=== PATIENT | female | born 1955 | race Caucasian/White ===

== ENCOUNTER → 2017-04-01 | Outpatient (CLI) | payer BC ==
[~2017-04-01] MED LIST: ASPI-630 PO; LEVO25TA4 PO; VARE1TAB20 PO
--- NOTE | 2017-04-01 09:57 | RAD ---
DATE: 04/01/2017 EXAM: MAMMO CECILIA SCREENING BILATERAL HISTORY: Routine screening COMPARISON: 03/04/2016 This study was interpreted with the benefit of Computerized Aided Detection (CAD). FINDINGS: Breast Density: SCATTERED The breast parenchyma shows scattered fibroglandular densities. Breast parenchyma level B. There are no dominant suspicious masses, suspicious microcalcifications or evidence of architectural distortion. IMPRESSION: Negative mammogram. BI-RADS CATEGORY: 1 NEGATIVE RECOMMENDED FOLLOW-UP: 12M 12 MONTH FOLLOW-UP PQRS compliance statement: Patient information was entered into a reminder system with a target due date 04/01/2018 for the next mammogram. Mammography is a sensitive method for finding small breast cancers, but it does not detect them all and is not a substitute for careful clinical examination. A negative mammogram does not negate a clinically suspicious finding and should not result in delay in biopsying a clinically suspicious abnormality. "Our facility is accredited by the [employer] Mammography [employer]."
== END | disposition home or self-care (01) ==
LOC: MAMMO 08:03
PROVIDERS: ATTEND Nurse Practitioner Family
DX: Z85.3 Personal history of malignant neoplasm of breast (principal); Z12.31 Encounter for screening mammogram for malignant neoplasm of breast
CPT/HCPCS: 77063; G0202; 77067

== ENCOUNTER → 2018-03-21 | Outpatient (CLI) | payer BC ==
--- NOTE | 2018-03-21 13:25 | RAD ---
DATE: 03/21/2018 EXAM: MAMMO CECILIA SCREENING BILATERAL HISTORY: Routine screening COMPARISON: 04/01/2017 This study was interpreted with the benefit of Computerized Aided Detection (CAD). Breast Density: SCATTERED The breast parenchyma shows scattered fibroglandular densities. Breast parenchyma level B. FINDINGS: 2-D and 3-D tomosynthesis imaging was performed in CC and MLO projections. No new or enlarging breast densities are seen. No suspicious microcalcifications are evident. IMPRESSION: Stable mammograms without evidence of malignancy. BI-RADS CATEGORY: 1 NEGATIVE RECOMMENDED FOLLOW-UP: 12M 12 MONTH FOLLOW-UP PQRS compliance statement: Patient information was entered into a reminder system with a target due date for the next mammogram. Mammography is a sensitive method for finding small breast cancers, but it does not detect them all and is not a substitute for careful clinical examination. A negative mammogram does not negate a clinically suspicious finding and should not result in delay in biopsying a clinically suspicious abnormality. "Our facility is accredited by the [employer] Mammography [employer]."
--- NOTE | 2018-03-21 13:30 | RAD ---
EXAM: Dual energy x-ray absorptiometry (DEXA). HISTORY: Postmenopausal female presents for osteoporosis screening. COMPARISON: 12/26/2012. TECHNIQUE: Dual energy x-ray absorptiometry of the lumbar spine and right hip was performed. Calculation of bone mineral density based on standard deviations above or below the expected young adult normal value (T-score) was completed. FINDINGS: The average bone mineral density in the 1st through 4th lumbar vertebrae is 1.060 g/cmxcm, corresponding with a T-score of -1.0. There has been a 1.9 percent decrease in density of the lumbar spine compared to the prior study. The average total bone mineral density in the right hip is 1.048 g/cmxcm, corresponding with a T-score of 0.8. There has been a 0.9 percent decrease in density of the right hip compared to the prior study. IMPRESSION: 1. Borderline osteopenia measured at the lumbar spine. 2. Normal bone mineral density measured at the right hip. Note: Definitions established by the World Health Organization: 1. Normal: T-score is -1.0 or above. 2. Osteopenia: T-score is between -1.0 and -2.5 . 3. Osteoporosis: T-score is -2.5 or below. Electronically signed by: Haven Fuentes MD (03/21/2018 1:27 PM) [id number]
== END | disposition home or self-care (01) ==
LOC: DXRAD 11:07
PROVIDERS: ATTEND Physician Assistant Medical
DX: Z12.31 Encounter for screening mammogram for malignant neoplasm of breast (principal); Z13.820 Encounter for screening for osteoporosis; Z78.0 Asymptomatic menopausal state
CPT/HCPCS: 77063; 77067; 77080

== ENCOUNTER → 2019-03-26 | Outpatient (CLI) | payer BC ==
--- NOTE | 2019-03-27 15:02 | RAD ---
DATE: March 26, 2019 EXAM: MAMMO CECILIA SCREENING BILATERAL HISTORY: Screening study. COMPARISON: 2016 and 2018 This study was interpreted with the benefit of Computerized Aided Detection (CAD). 2-D digital mammographic views of both breasts were performed in the CC and MLO projections. 3-D digital tomosynthesis images of both breasts were performed in the CC and MLO projections and reviewed on a computer workstation. FINDINGS: Breast Density: FATTY The breast parenchyma is primarily fatty replaced. Breast parenchyma level density A.. There are no dominant suspicious masses, suspicious microcalcifications or evidence of architectural distortion. IMPRESSION: No mammographic indicators for malignancy. BI-RADS CATEGORY: 1 NEGATIVE RECOMMENDED FOLLOW-UP: 12M 12 MONTH FOLLOW-UP PQRS compliance statement: Patient information was entered into a reminder system with a target due date March 27, 2020 for the next mammogram. Mammography is a sensitive method for finding small breast cancers, but it does not detect them all and is not a substitute for careful clinical examination. A negative mammogram does not negate a clinically suspicious finding and should not result in delay in biopsying a clinically suspicious abnormality. "Our facility is accredited by the [employer] Mammography Program." The patient's breast density may affect the ability of mammography to detect breast cancer. There are 4 categories of breast density, A, B, C and D. Breast density A means that most of the breast tissue is replaced with adipose tissue and therefore is not dense. Breast density B means that the breast tissue is mildly dense and scattered. Breast density C means that the breast tissue is heterogeneously dense. Breast density D means that the breast tissue is very dense. Breast densities especially C and D may decrease the sensitivity of mammography to detect breast cancer. Therefore, the patient may benefit from 3-D breast mammography (3D breast tomography) as a part of their screening mammogram. Insurance may or may not pay for this additional imaging. The patient's breast density based on today's mammogram is category A.
== END | disposition home or self-care (01) ==
LOC: MAMMO 13:18
PROVIDERS: ATTEND Physician Assistant Medical
DX: Z12.31 Encounter for screening mammogram for malignant neoplasm of breast (principal)
CPT/HCPCS: 77063; 77067

== ENCOUNTER → 2020-01-28 | Outpatient (CLI) | payer MEDICARE, BC ==
--- NOTE | 2020-01-28 18:55 | RAD ---
EXAMINATION: Bilateral screening mammogram, 01/28/2020 9:30 AM CLINICAL INDICATION: 64-year-old woman presenting for screening mammogram. COMPARISON: Screening mammogram 03/26/2019 TECHNIQUE: Digital bilateral full-field CC and MLO views, and CC and MLO tomosynthesis views of the breasts were obtained. CAD was utilized. FINDINGS: The breasts are almost entirely fatty. There is no mass, suspicious calcification, or architectural distortion. IMPRESSION: 1. No mammographic evidence of malignancy. 2. BI-RADS 1: Negative. 3. Routine annual screening mammogram is recommended in 1 year. The patient will receive a reminder letter by mail when she is due for her next exam. Electronically signed by: Adrianne Galo MD (01/28/2020 6:52 PM) [id number]
== END | disposition home or self-care (01) ==
LOC: MAMMO 09:14
PROVIDERS: ATTEND Physician Assistant Medical
DX: Z12.31 Encounter for screening mammogram for malignant neoplasm of breast (principal)
CPT/HCPCS: 77063; 77067

== ENCOUNTER → 2020-08-18 | Outpatient (CLI) | payer MEDICARE, BC ==
--- NOTE | 2020-08-18 11:43 | RAD ---
EXAM: Chest CT without intravenous contrast. HISTORY: Shortness of breath. Cigarette smoking. TECHNIQUE: Computed tomographic images of the chest were obtained without contrast. Multiplanar refor matting was performed. *One or more of the following individualized dose reduction techniques were utilized for this examina tion: 1. Automated exposure control. 2. Adjustment of the mA and/or kV according to patient size. 3. Use of iterative reconstruction technique. COMPARISON: None. FINDINGS: The heart is normal in size. The aorta is normal in caliber. No pathologically enlarged med iastinal or hilar lymph node is seen. There are calcified mediastinal and right hilar granulomas. The re is no pleural effusion or pneumothorax. There is mild pulmonary emphysema with biapical pleural pa renchymal scarring. There is a 6 mm nodule abutting the pleural of the posterior superior right upper lobe likely due to adjacent scarring. There is a 2 mm nodule within the right upper lobe (series 2, image 42). There is a 2 mm nodule within the posterior right lower lobe (series 2, image 45). There i s a 3 mm groundglass nodule within the lateral right middle lobe (series 2, image 47). There is a 3 m m groundglass nodule within the right middle lobe processes series 2, image 56). There is a 2 mm nodu le abutting the pleura of the left lower lobe (series 2, image 39). There is no acute finding involvi ng the upper abdomen or osseous structures. There is a benign osseous hemangioma within T11. No suspi cious osseous lesion is seen. IMPRESSION: 1. Mild pulmonary emphysema with biapical pleural parenchymal scarring. 2. Multiple small pulmonary nodules, the largest of which measures 6 mm within the right upper lobe a nd is likely related to aforementioned pleural parenchymal scarring. Follow-up can be performed in on e year to confirm anatomy. 3. No acute thoracic finding. Electronically signed by: Haven Fuentes MD (08/18/2020 11:41 AM) [id number]
== END ==
LOC: CT 11:11
PROVIDERS: ATTEND Family Medicine
DX: J43.9 Emphysema, unspecified (principal); R91.8 Other nonspecific abnormal finding of lung field; F17.200 Nicotine dependence, unspecified, uncomplicated
CPT/HCPCS: 71250

== ENCOUNTER → 2021-02-11 | Outpatient (CLI) | payer MEDICARE, BC ==
--- NOTE | 2021-02-11 12:46 | RAD ---
Bone densitometry 02/11/2021 11:22 AM Indication: Reason: SCREENING / Spl. Instructions: / History: Comparison Study: Bone densitometry March 21, 2018. Discussion: Bone Densitometry was performed with dual photon absorption of the lumbar spine and pro ximal femur. Lumbar Spine: Bone average density is 1.03g/cm2 for L1-L4. T-Score is -1.3. (Prior T score -1.0) Right femoral neck: Bone average density is 0.981g/cm2. T-Score is -0.4. (Prior T score -0.5) IMPRESSION: Osteopenia with similar bone density to comparison study. Note: Definitions established by the World Health Organization: Normal: T-score is -1.0 or above. Osteopenia: T-score is between -1.0 and -2.5. Osteoporosis: T-score is -2.5 or below. Electronically signed by: Javier Worthington MD (02/11/2021 12:43 PM) [id number]
--- NOTE | 2021-02-11 17:29 | RAD ---
Bilateral digital screening 2-D and 3-D (digital breast tomosynthesis) mammogram: Reason for examination: Routine screening. Comparison: Mammogram from 01/28/2020. Interpretation was made with the benefit of CAD. FINDINGS: Breast density: Category A. Breast tissue is almost entirely fatty. No suspicious breast mass, malignant appearing calcifications, or architectural distortion is seen. IMPRESSION: No evidence of malignancy. Assessment: BI-RADS 1. Negative. Recommendation: Routine screening mammograms. The patient will receive a letter with the results in the mail. Patient information will be entered i nto the mammography reminder system with a target recall date for the next mammogram. A reminder everardo er will be generated. Electronically signed by: Laquita Anders MD (02/11/2021 5:27 PM) [id number]
== END ==
LOC: MAMMO 10:20
PROVIDERS: ATTEND Physician Assistant
DX: Z12.31 Encounter for screening mammogram for malignant neoplasm of breast (principal); M85.88 Other specified disorders of bone density and structure, other site; N95.0 Postmenopausal bleeding; Z78.0 Asymptomatic menopausal state
CPT/HCPCS: 77063; 77067; 77080

== ENCOUNTER → 2021-09-04 | Outpatient (CLI) | payer MEDICARE, BC ==
--- NOTE | 2021-09-04 14:51 | RAD ---
STUDY: CT chest without contrast INDICATION: Pulmonary nodule. Follow-up. COMPARISON: 08/18/2020 TECHNIQUE: Helical CT imaging of the chest performed without the use of intravenous contrast. Sagitta l and coronal reformats were obtained. One or more of the following individualized dose reduction techniques were utilized for this examinat ion: 1. Automated exposure control 2. Adjustment of the mA and/or kV according to patient size 3. Use of iterative reconstruction technique. FINDINGS: Lungs: Unchanged nodular focus at the posterior aspect of the right upper lobe with a mean diameter o f 6 mm (image 22 series 2. a few additional small nodules on the right are no different. No new or en larging nodule on the left. Mild emphysema. Vasculature: Unchanged dimensions of the aorta and main pulmonary artery. Scattered calcific atherosc lerosis with mild coronary artery involvement seen along the circumflex. Mediastinum/[place]: Tiny hiatal hernia. Several granulomas. No pathologically enlarged noncalcified lym ph nodes. Neck/axilla/chest wall: No significant change. Bones: No acute or aggressive abnormality. 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 T10 vertebral body hemangioma. Upper abdomen: No relevant new finding. IMPRESSION: Pre-existing pulmonary nodules are no different in size on both the right and left. Mild emphysema. A ssuming the patient meets screening guidelines annual low dose CT of the chest is recommended. Electronically signed by: ELMER CHENG MD (09/04/2021 2:48 PM) [facility]
== END ==
LOC: CT 10:59
PROVIDERS: ATTEND Family Medicine
DX: R91.8 Other nonspecific abnormal finding of lung field (principal); J43.9 Emphysema, unspecified; M47.812 Spondylosis without myelopathy or radiculopathy, cervical region; K44.9 Diaphragmatic hernia without obstruction or gangrene; L92.9 Granulomatous disorder of the skin and subcutaneous tissue, unspecified
CPT/HCPCS: 71250